=== PATIENT | female | born 2000 | race Caucasian/White ===

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

== ENCOUNTER 2019-05-18 16:55 | Emergency (ER) | payer BC ==
[~2019-05-18] VITALS: Ht 157 cm; Wt 86.7 kg
[~2019-05-18 16:55] MED LIST changes: +NAPR-1071 PO
--- NOTE | 2019-05-18 17:17 | ED Headache ---
General Chief Complaint: Head/Cervical Problems Stated Complaint: FELL/HIT HEAD Nursing Triage Note: ARRIVED VIA AMB TO TRIAGE. STATES SHE FELL ON THE ICE HITTING HER HEAD AND HURTING RIGHT ELBOW. DENIES LOC OR NECK PAIN. STATES SHE IS SICK TO HER STOMACH. Nursing Sepsis Screen: No Definite Risk Source: patient Exam Limitations: no limitations History of Present Illness Date Seen by Provider: May 18, 2019 Time Seen by Provider: 17:15 Initial Comments ER per private vehicle with reports that she slipped on the ice about 30 minutes ago falling back striking the back of her head on the ground. No loss of consciousness does have a severe headache, no neck pain. She does have dizziness and nausea without vomiting. She also hit the dorsal aspect of the right elbow but now has full range of motion of the right elbow without pain. Timing/Duration: 1-3 hours Severity/Quality: moderate Location: occipital Prior Headaches/Recent Trauma: head trauma < 24 hrs ago Allergies and Home Medications Allergies Coded Allergies: cefdinir (Verified Allergy, Unknown, 07/18/18) sulfamethoxazole (Verified Allergy, Unknown, 07/18/18) trimethoprim (Verified Allergy, Unknown, 07/18/18) Uncoded Allergies: IV CONTRAST (Allergy, Unknown, 07/18/18) Home Medications Amoxicillin 500 Mg Capsule, 500 MG PO BID Prescribed by: MIHIR [place] on 07/18/18 1419 Naproxen 500 Mg Tablet, 500 MG PO BID Prescribed by: YESSY WHITE on 01/01/19 0026 Patient Home Medication List Home Medication List Reviewed: Yes Review of Systems Review of Systems Constitutional: see HPI, dizziness Eyes: No Symptoms Reported Ears, Nose, Mouth, Throat: no symptoms reported Respiratory: no symptoms reported Cardiovascular: no symptoms reported Gastrointestinal: nausea Genitourinary: no symptoms reported Musculoskeletal: no symptoms reported Skin: no symptoms reported Psychiatric/Neurological: Headache Past Wrpdrfo-Ppyurn-Lmbtrv Hx Patient Social History Alcohol Use: Occasionally Uses Recreational Drug Use: No Type Used: Electronic/Vapor 2nd Hand Smoke Exposure: Yes Recent Foreign Travel: No Contact w/Someone Who Travel: No Recent Infectious Disease Expo: No Recent Hopitalizations: No Immunizations Up To Date Tetanus Booster (TDap): Less than 5yrs PED Vaccines UTD: Yes Seasonal Allergies Seasonal Allergies: No Past Medical History Surgeries: Yes (wisdom teeth) Respiratory: No Cardiac: No Neurological: No : No Last Menstrual Period: May 18, 2019 [employer]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 oz. 80.235297bx; 35.00 BMI Method:Stated General Appearance: WD/WN, no apparent distress HEENT: PERRL/EOMI, normal ENT inspection, TMs normal Neck: non-tender, full range of motion; No tender lateral, No tender midline Respiratory: normal breath sounds, no respiratory distress, no accessory muscle use Gastrointestinal: soft Extremities: normal range of motion, non-tender Psychiatric: alert, oriented x 3 Crainal Nerves: normal hearing, normal speech, PERRL Skin: normal color, warm/dry Progress/Results/Core Measures Results/Orders My Orders Orders - NICOLLE BAZZI APRN Ct Head Wo (05/18/19 17:14) Vital Signs/I&O 05/18/19 16:55 Temp 36.5 Pulse 97 Resp 16 B/P (MAP) 139/87 (104) Pulse Ox 99 O2 Delivery Room Air Blood Pressure Mean: 104 Departure Impression Primary Impression: Concussion without loss of consciousness Qualified Codes: S06.0X0A - Concussion without loss of consciousness, initial encounter Disposition: 01 HOME, SELF-CARE Condition: Stable Departure-Patient Inst. Decision time for Depature: 17:16 Referrals: NO,LOCAL PHYSICIAN (PCP/Family) Primary Care Physician Patient Instructions: Concussion in Adults Add. Discharge Instructions: 1. Tylenol and ibuprofen for pain control. Return to ER for any concerns 3. Follow-up with your doctor next week. All discharge instructions reviewed with patient and/or family. Voiced understanding. Work/School Note: Work Release Form Date Seen in the Emergency Department: May 18, 2019 Return to Work: May 20, 2019 NICOLLE BAZZI APRN May 18, 2019 17:16
--- NOTE | 2019-05-18 18:00 | Diagnostic Imaging Report ---
CLINICAL INDICATION: Patient fell on ice and struck posterior head. Patient has headache and nausea. EXAM: Axial CT scan of the brain performed without IV contrast. COMPARISON: None. EXAM: Axial CT scan of the brain without IV contrast. Auto Exposure Controls were utilized during the CT exam to meet ALARA standards for radiation dose reduction. COMPARISON: None. FINDINGS: There is no evidence of acute cerebral infarct, intracranial hemorrhage, or gross mass effect. The brain parenchymal volume appears appropriate for patient's age. There is normal laboy-white matter distinction. There is no significant midline shift or herniation. There is no evidence of hydrocephalus. The basal cisterns are unremarkable. The skull, extracranial soft tissue, and orbits are unremarkable. The paranasal sinuses are unremarkable. Temporal bones show no significant abnormality. IMPRESSION: Unremarkable CT scan of the brain for age. Dictated by: Dictated on workstation # [id number]
[2019-05-18 18:06] VITALS: BP 139/87
== END 2019-05-18 18:06 | disposition home or self-care (01) ==
LOC: EDUNIT# 16:55 → ER 16:57
DX: S06.0X0A Concussion without loss of consciousness, initial encounter (principal); Z88.2 Allergy status to sulfonamides; Z88.1 Allergy status to other antibiotic agents; Z77.22 Contact with and (suspected) exposure to environmental tobacco smoke (acute) (chronic); Z91.041 Radiographic dye allergy status; W00.0XXA Fall on same level due to ice and snow, initial encounter
CPT/HCPCS: 70450

== ENCOUNTER 2019-05-20 02:18 | Emergency (ER) | payer BC ==
--- NOTE | 2019-05-20 03:34 | ED Neck-Back Pain/Injury ---
General Chief Complaint: General Problems/Pain Stated Complaint: NECK & BACK PAIN Source of Information: Patient, Old Records History of Present Illness Date Seen by Provider: May 20, 2019 Time Seen by Provider: 02:45 Initial Comments PT ARRIVES VIA POV WITH BOYFRIEND PT STATES SHE SLIPPED ON THE ICE AT A FRIEND'S HOUSE YESTERDAY AFTERNOON AT 1400, HITTING THE BACK OF HER HEAD WAS SEEN HERE AND HAD CT OF HEAD WHICH WAS READ NORMAL PT STATES HER NECK HAS HAD SEVERE PAIN SINCE SHE FELL, AND IS UNABLE TO MOVE HER NECK AT ALL, AND IS ALSO HAVING ALOT OF BACK PAIN NOW WELL--WORSE IN UPPER HALF OF BACK. NO PARESTHESIAS OR MOTOR DEFICITS NO RADIATION OF PAIN TO ARMS OR LEGS NO VISION CHANGES NO DIZZINESS NO NAUSEA/VOMITING C/O HEADACHE STATES SHE TOOK IBUPROFEN 800 MG AT 0800 THIS MORNING, STATES "IT DIDN'T HELP--I WENT TO SLEEP" HAS NOT TAKEN ANYTHING ELSE FOR SYMPTOMS DENIES ANY PRIOR PROBLEMS WITH HER NECK OR BACK PT WAS SUPPOSED TO GO TO WORK TODAY AT 1500, BUT DID NOT. HOWEVER, PT HAS BEEN OUT TO EAT TONIGHT AND HAS BEEN PARTYING ALL NIGHT, AND THEN CAME HERE FOR THIS COMPLAINT. PT HAS CONTINUED TO USE HER PHONE, ETC. 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 Other Comments PCP: PT IS STUDENT AT [employer], FROM [facility] Allergies and Home Medications Allergies Coded Allergies: cefdinir (Verified Allergy, Unknown, 07/18/18) sulfamethoxazole (Verified Allergy, Unknown, 07/18/18) trimethoprim (Verified Allergy, Unknown, 07/18/18) Uncoded Allergies: IV CONTRAST (Allergy, Unknown, 07/18/18) Home Medications Amoxicillin 500 Mg Capsule, 500 MG PO BID Prescribed by: MIHIR NY on 07/18/18 1419 Naproxen 500 Mg Tablet, 500 MG PO BID Prescribed by: YESSY WHITE on 01/01/19 0026 Patient Home Medication List Home Medication List Reviewed: Yes Review of Systems Constitutional: no symptoms reported; No dizziness EENTM: no symptoms reported Respiratory: no symptoms reported Cardiovascular: no symptoms reported Gastrointestinal: no symptoms reported Genitourinary: no symptoms reported : No LMP: May 19, 2019 Control/STD Prophylaxis: Other (NEXPLANON) Musculoskeletal: see HPI, back pain, muscle pain, neck pain Skin: no symptoms reported Psychiatric/Neurological: No Symptoms Reported; Denies Headache, Denies Numbness, Denies Paresthesia, Denies Seizure, Denies Tingling, Denies Tremors, Denies Weakness Past Ttpygnu-Xfdkrk-Xqcgir Hx Past Med/Social Hx: Reviewed and Corrections made Patient Social History Smoking Status: Current Everyday Smoker Type Used: Electronic/Vapor 2nd Hand Smoke Exposure: Yes Recent Foreign Travel: No Contact w/Someone Who Travel: No Recent Hopitalizations: No Immunizations Up To Date Tetanus Booster (TDap): Less than 5yrs PED Vaccines UTD: Yes Seasonal Allergies Seasonal Allergies: No Past Medical History Surgeries: Yes (wisdom teeth) Respiratory: No Cardiac: No Neurological: No : No (NEXPLANON IN PLACE OF 05/20/19) Genitourinary: No Gastrointestinal: No Musculoskeletal: No Endocrine: No HEENT: No Cancer: No Psychosocial: Yes Anxiety Integumentary: No Blood Disorders: No Adverse Reaction/Blood Tranf: No Physical Exam Vital Signs Capillary Refill : Height, Weight, BMI Height: 5'2.00" Weight: 178lbs. oz. 80.082326qd; 35.00 BMI Method:Stated General Appearance: No Apparent Distress, WD/WN HEENT: PERRL/EOMI, TMs Normal, Normal ENT Inspection, Pharynx Normal, Other (NO EXTERNAL EVIDENCE OF TRAUMA TO HEAD) Neck: Limited Range of Motion, Tender Lateral (TRAPEZIUS AND CERVICAL PA RAVERTEBRAL MUSCLE TENDERNESS.. NO BONY TENDERNESS); No Tender Midline Cardiovascular: Regular Rate, Rhythm, No Edema, No Murmur, Normal Peripheral Pulses Respiratory: Chest Non Tender, Normal Breath Sounds, No Accessory Muscle Use, No Respiratory Distress Gastrointestinal: Non Tender, Soft Back: No CVA Tenderness, No Vertebral Tenderness, Decreased Range of Motion, Other (DIFFUSE UPPER AND MID BACK PARAVERTEBRAL MUSCLE TENDERNESS. NO BONY TENDERNESS. ) Extremity: Normal Capillary Refill, Normal Inspection, Normal Range of Motion, Non Tender, No Calf Tenderness, No Pedal Edema Neurologic/Psychiatric: Alert, Oriented x3, No Motor/Sensory Deficits, Normal Mood/Affect, radiographer II-XII Norm as Tested; No Abnormal Cerebellar Tests Skin: Normal Color, Warm/Dry, Other (NO EXTERNAL EVIDENCE OF TRAUMA ANYWHERE) Progress/Results/Core Measures Results/Orders My Orders Orders - LUIZ YOON DO Ct Thoracic/Lumbar Spine Wo (05/20/19 02:45) Ct Cervical Spine Wo (05/20/19 02:45) Progress Progress Note : Progress Note UNEVENTFUL ER STAY SLEPT FOR REMAINDER OF ER STAY Diagnostic Imaging Comments CT CERVICAL SPINE--NO ACUTE PROCESS, PER [facility] VIA FAX [place] [address] CT THORACIC/LUMBAR SPINE--NO ACUTE PROCESS, PER [facility] VIA FAX AT 1095 Reviewed: Reviewed by Me Departure Impression Primary Impression: Status post fall Additional Impressions: Cervical myofascial strain Thoracic myofascial strain Disposition: HOME, SELF-CARE Condition: Stable Departure-Patient Inst. Referrals: NO,LOCAL PHYSICIAN (PCP/Family) Primary Care Physician Patient Instructions: Cervical Muscle Strain (DC), Muscle Strain (DC), Upper Back Pain (DC) Add. Discharge Instructions: ALTERNATE ICE AND HEAT TO SORE AREAS AT 20 MINUTE INTERVALS TYLENOL 1 GRAM/ MOTRIN 800 MG 4 TIMES A DAY FOR PAIN ACTIVITIES TOLERATED FOLLOW UP WITH DR OF CHOICE OR CAMPUS CLINIC IN 1 WEEK IF NO BETTER All discharge instructions reviewed with patient and/or family. Voiced understanding. Work/School Note: Work Release Form Date Seen in the Emergency Department: May 20, 2019 LUIZ YOON DO May 20, 2019 03:34
--- NOTE | 2019-05-20 06:40 | Diagnostic Imaging Report ---
PROCEDURE: CT cervical spine without contrast. TECHNIQUE: Multiple contiguous axial images were obtained through the cervical spine without the use of intravenous contrast. Sagittal and coronal reformations were then performed. Auto Exposure Controls were utilized during the CT exam to meet ALARA standards for radiation dose reduction. INDICATION: Fall 2 days prior. Neck soreness. FINDINGS: Alignment of the cervical spine appears normal. There is a normal relationship to the bettye cervical junction. The facets are normally aligned. There are no findings of facet joint or disc space widening. The vertebral body heights are well-maintained. There is no abnormal prevertebral soft tissue thickening. There are no findings of an acute cervical spine fracture. There is no evidence to suggest significant cervical canal or neural foraminal stenosis. The lung apices are clear. Soft tissues of the neck demonstrate no significant abnormalities. There are small scattered non-pathologically enlarged cervical chain lymph nodes. IMPRESSION: 1. Normal height and alignment of the cervical spine. There are no findings of an acute cervical spine fracture. There is no evidence to suggest significant cervical canal stenosis. 2. I agree with the preliminary [facility] report. Dictated by: Dictated on workstation # [id number]
--- NOTE | 2019-05-20 06:42 | Diagnostic Imaging Report ---
PROCEDURE: CT thoracic and lumbar spine without contrast. TECHNIQUE: Multiple contiguous axial images were obtained through the thoracic and lumbar spine without the use of intravenous contrast. Sagittal and coronal reformations were then performed. INDICATION: Back soreness. COMPARISON: CT cervical spine performed concurrently. FINDINGS: Thoracic spine: The thoracic cord has normal kyphosis. No fracture or traumatic malalignment. No features of discitis-osteomyelitis. No areas of high-grade spinal stenosis or neural foraminal narrowing within the thoracic spine. The visualized aspects of the lungs are clear. Lumbar spine: Normal lordosis of the lumbar spine. No fracture or traumatic subluxation. Intervertebral disc space heights are preserved. No spinal stenosis or neural foraminal narrowing. Uterus and ovaries appear physiologic in nature. There is an air-filled tampon within the vagina. No retroperitoneal lymphadenopathy. IMPRESSION: Normal CT of the thoracic and lumbar spines. Dictated by: Dictated on workstation # [id number]
== END 2019-05-20 04:46 | disposition home or self-care (01) ==
LOC: EDUNIT# 02:18 → ER 02:20
DX: S16.1XXA Strain of muscle, fascia and tendon at neck level, initial encounter (principal); S29.012A Strain of muscle and tendon of back wall of thorax, initial encounter; F17.290 Nicotine dependence, other tobacco product, uncomplicated; Z88.1 Allergy status to other antibiotic agents; Z88.2 Allergy status to sulfonamides; Z91.041 Radiographic dye allergy status; W00.9XXA Unspecified fall due to ice and snow, initial encounter; Y92.019 Unspecified place in single-family (private) house as the place of occurrence of the external cause
CPT/HCPCS: 72125; 72128; 72131

== ENCOUNTER → 2022-08-04 | Emergency (ER) | payer BC ==
[~2022-08-04] VITALS: Ht 157 cm; Wt 86.0 kg
[~2022-08-04] MED LIST changes: +CIPROFLOXACIN 500 MG (CIPRO) TABLET PO SCH; +PHENAZOPYRIDINE 100 MG (PYRIDIUM) TABLET PO ONE
[2022-08-04 16:54] LABS: CLARITY,URINE CLEAR; COLOR,URINE YELLOW
[2022-08-04 16:55] LABS: BACTERIA,URINE MODERATE /HPF; BILIRUBIN,URINE NEGATIVE (NEGATIVE); GLUCOSE, URINE (UA) NEGATIVE (NEGATIVE); KETONES,URINE NEGATIVE (NEGATIVE); LEUKOCYTE ESTERASE ,URINE NEGATIVE (NEGATIVE); NITRITE,URINE NEGATIVE (NEGATIVE); PROTEIN,URINE NEGATIVE (NEGATIVE); WBC,URINE RARE /HPF
[2022-08-04 17:32] VITALS: BP 149/103
--- NOTE | 2022-08-04 21:10 | ED General ---
General Chief Complaint: - Reproductive Stated Complaint: PAINFUL URINATION | RT SIDE BACK PAIN Nursing Triage Note: PT AMB TO RM 9 PT CO OF LOWER ABD PAIN, CRAMPING AND LOWER BACK PAIN, CO OF PAIN AND BURNING UPON URINATION. STARTED LAST PM Source of Information: Patient Exam Limitations: No Limitations History of Present Illness Date Seen by Provider: August 04, 2022 Time Seen by Provider: 08:55 Allergies and Home Medications Allergies Coded Allergies: cefdinir (Verified Allergy, Unknown, 07/18/18) sulfamethoxazole (Verified Allergy, Unknown, 07/18/18) trimethoprim (Verified Allergy, Unknown, 07/18/18) Uncoded Allergies: IV CONTRAST (Allergy, Unknown, 07/18/18) Patient Home Medication List Amoxicillin (Amoxicillin) 500 Mg Capsule, 500 MG PO BID Prescribed by: MIHIR NY on 07/18/18 1419 Naproxen (Naprosyn) 500 Mg Tablet, 500 MG PO BID Prescribed by: YESSY WHITE on 01/01/19 0026 Past Hzahuvi-Hggzlz-Ilmrsv Hx Immunizations Up To Date Tetanus Booster (TDap): Less than 5yrs PED Vaccines UTD: Yes Seasonal Allergies Seasonal Allergies: No Past Medical History Surgeries: Yes (wisdom teeth) Respiratory: No Cardiac: No Neurological: No Last Menstrual Period: Jul 19, 2022 Genitourinary: No Gastrointestinal: No Musculoskeletal: No Endocrine: No HEENT: No Cancer: No Psychosocial: Yes Anxiety Integumentary: No Blood Disorders: No Adverse Reaction/Blood Tranf: No Physical Exam Vital Signs Vital Signs - First Documented 08/04/22 08/04/22 09:25 17:32 Temp 36.5 Pulse 85 Resp 16 B/P (MAP) 121/85 Pulse Ox 99 O2 Delivery Room Air Capillary Refill : Less Than 3 Seconds Height, Weight, BMI Height: 5'2.00" Weight: 178lbs. oz. 80.048292oa; 34.00 BMI Method:Stated Progress/Results/Core Measures Suspected Sepsis SIRS Temperature: Pulse: 89 Respiratory Rate: 16 Blood Pressure 149 /103 Mean: 118 Results/Orders Lab Results Laboratory Tests Test 08/04/22 08:20 Range/Units Urine Color YELLOW Urine Clarity CLEAR Urine pH 6.0 5-9 Urine Specific Sullivan >=1.030 1.016-1.022 Urine Protein NEGATIVE NEGATIVE Urine Glucose (UA) NEGATIVE NEGATIVE Urine Ketones NEGATIVE NEGATIVE Urine Nitrite NEGATIVE NEGATIVE Urine Bilirubin NEGATIVE NEGATIVE Urine Urobilinogen 0.2 < = 1.0 MG/DL Urine Leukocyte Esterase NEGATIVE NEGATIVE Urine RBC (Auto) NEGATIVE NEGATIVE Urine RBC NONE /HPF Urine WBC RARE /HPF Urine Squamous Epithelial Cells 2-5 /HPF Urine Crystals NONE /LPF Urine Bacteria MODERATE H /HPF Urine Casts NONE /LPF Urine Mucus NEGATIVE /LPF Urine Culture Indicated YES My Orders Orders - JOSE CARRILLO MD Urinalysis (08/04/22 08:20) Urine Culture (08/04/22 08:20) Ciprofloxacin Tablet (Cipro Tablet) (08/04/22 17:15) Phenazopyridine Tablet (Pyridium Tablet) (08/04/22 17:15) Medications Given in ED Current Medications Medications Dose Ordered Sig/Dimas Route Start Time Stop Time Status Last Admin Dose Admin Phenazopyridine HCl 200 mg ONCE ONCE PO 08/04/22 17:15 08/04/22 17:16 DC 08/04/22 09:15 200 MG Vital Signs/I&O 08/04/22 08/04/22 09:25 17:32 Temp 36.5 Pulse 85 89 Resp 16 16 B/P (MAP) 121/85 149/103 (118) Pulse Ox 99 99 O2 Delivery Room Air Capillary Refill : Less Than 3 Seconds Blood Pressure Mean: 118 Departure Impression Primary Impression: Urinary tract infection Qualified Codes: N39.0 - Urinary tract infection, site not specified Additional Impressions: Dysuria Low back pain Qualified Codes: M54.50 - Low back pain, unspecified Disposition: HOME, SELF-CARE Condition: Stable Departure-Patient Inst. Decision time for Depature: 09:04 Referrals: NO,LOCAL PHYSICIAN (PCP/Family) Primary Care Physician JOSE CARRILLO MD August 04, 2022 21:10
== END ==
LOC: EDUNIT# 15:47 → ER 15:49
DX: N39.0 Urinary tract infection, site not specified (principal)
CPT/HCPCS: 81000; 87088; 99283